=== PATIENT | female | born 1970 | race Two or more races ===

== ENCOUNTER 2021-09-30 06:48 | Day surgery (SDC) | payer OTHER ==
[~2021-09-30 06:48] MED LIST: AMBIEN5 MG PO
[2021-09-30] MEDS ORDERED: DERMOPLAST PAIN78 GM TOP (13:31)
[2021-09-30] MEDS ORDERED: PERCOCET 5-3251 EACH PO (13:31)
[2021-09-30] MEDS ORDERED: NEURONTIN300 MG PO (13:31)
[2021-09-30] MEDS ORDERED: KETO10TA2 PO (13:32)
== END 2021-09-30 16:45 | disposition home or self-care (01) ==
LOC: CIR.AMB 06:48
PROVIDERS: ATTEND Surgery
DX: K64.8 Other hemorrhoids (principal); K64.4 Residual hemorrhoidal skin tags; Z20.822 Contact with and (suspected) exposure to COVID-19